=== PATIENT | female | born 1995 | race Asian ===

== ENCOUNTER 2023-05-26 08:05 | Outpatient (CLI) | payer OTHER ==
--- NOTE | 2023-05-26 10:29 | Ultrasound Report ---
PROCEDURE: Pelvic w/Transvaginal INDICATIONS: POLYCYSTIC OVARIAN SYN TECHNIQUE: Real-time scanning was performed of the pelvic organs, with image documentation. Additional endovagi nal scanning was necessary due to incomplete visualization of the adnexal and endometrial structures by transabdominal scanning. COMPARISON: None. FINDINGS: Uterus: Uterus is anteverted and normal in size at 6.3 x 3.4 x 4.5 cm. The myometrium is homogeneou s. The endometrium measures 8 mm in combined thickness. Fluid in the endocervical canal. Ovaries: The right ovary measures 2.7 x 1.8 x 1.7 cm, with a calculated ovarian volume of 4.3 cc. T he left ovary measures 3.7 x 1.8 x 1.6 cm, with a calculated ovarian volume of 5.6 cc. The ovaries h ave a normal sonographic appearance. Greater than 12 follicles can be seen in each ovary. No adnexa l masses are seen. No cystic lesions measuring greater than 3 cm. Other: No pathologic free abdominal or pelvic fluid. IMPRESSION: Greater than 12 follicles can be seen in each ovary, which can be seen in the clinical setting of PCO S. Reviewed by: Jadiel Ash MD on 05/26/2023 10:28 AM PDT Approved by: Jadiel Ash MD on 05/26/2023 10:28 AM PDT Station ID: [id number]
== END 2023-05-26 08:06 | disposition home or self-care (01) ==
LOC: DI 08:05
PROVIDERS: ATTEND Student in an Organized Health Care Education/Training Program
DX: E28.2 Polycystic ovarian syndrome (principal); N97.0 Female infertility associated with anovulation